=== PATIENT | male | born 1965 | race Two or more races ===

== ENCOUNTER 2022-04-02 11:25 | Inpatient (IN) | payer OTHER ==
[~2022-04-02] VITALS: Ht 160 cm; Wt 88.8 kg
[2022-04-02] MEDS ORDERED: SODIUM CHLORIDE 0.9% 1,000 ML IV ONE ×2 (12:00→16:30)
[2022-04-02] MEDS ORDERED: ONDANSETRON HCL 4 MG/2 ML VIAL IV ONE (12:15)
[2022-04-02] MEDS ORDERED: fentaNYL CITRATE 100 MCG/2 ML VL IV ONE ×2 (12:15→18:45)
[2022-04-02 12:22] LABS: Basophils # (auto) 0.1 10 ^3/uL (0-0.2); Basophils % (auto) 0.7 % (0.0-2.0); Eosinophils # (auto) 0.1 10 ^3/uL (0-0.8); Eosinophils % (auto) 0.8 % (0.0-7.0); Hematocrit 44.4 % (41.0-53.0); Lymphocytes # (auto) 1.5 10 ^3/uL (0.4-5.4); Lymphocytes % (auto) 14.3 % (10.0-50.0); Mean Corpuscular Hemoglobin 29.4 pg (28.0-32.0); Mean Corpuscular Hgb Conc. 33.7 g/dL (32.0-36.0); Mean Corpuscular Volume 87.3 fL (80.0-100.0); Monocytes # (auto) 0.6 10 ^3/uL (0-1.3); Monocytes % (auto) 5.7 % (0.0-12.0); Neutrophils # (auto) 8.5 10 ^3/uL (1.6-8.6); Neutrophils % (auto) 78.5 % (37.0-80.0); Red Blood Cells 5.09 10^6/uL (4.5-5.90); White Blood Cell 10.8 10^3/uL (4.4-10.8)
[2022-04-02 12:46] LABS: Calcium 9.2 mg/dL (8.5-10.1); Magnesium 1.6 mg/dL (1.6-2.6); Potassium 3.9 mmol/L (3.5-5.1)
[2022-04-02 12:50] LABS: BUN/Creatinine Ratio 7.9; Bilirubin, Total 1.7 mg/dL (0.2-1.0); Total Protein 7.2 g/dL (6.4-8.2)
[2022-04-02 13:30] LABS: INR 1.01 (0.9-1.15); Partial Thromboplastin Time 23.6 sec (24.6-33.4)
[2022-04-02 13:38] LABS: Lactic Acid w/Reflex 2.8 mmol/L (0.4-2.0)
[2022-04-02] MEDS ORDERED: PIPERACILLIN-TAZOB 3.375GM 100 ML IV ONE (16:30)
[2022-04-02] MEDS ORDERED: ONDANSETRON HCL 4 MG/2 ML VIAL IV PRN (19:15)
[2022-04-02 19:51] LABS: Urine Bacteria NONE SEEN /hpf (None Seen); Urine Blood Negative /uL (Negative); Urine Specific Gravity 1.031 (1.001-1.035); Urine WBC 3 /hpf (0 - 3)
[2022-04-02] MEDS: SODIUM CHLORIDE 0.9% 1,000 ML IV SCH (21:47)
[2022-04-02] MEDS: PIPERACILLIN-TAZOB 3.375GM 100 ML IV SCH (22:19)
[2022-04-03] MEDS: MORPHINE SULFATE 4 MG/ML SYR/VIAL IV PRN ×2 (01:51→13:50)
[2022-04-03] MEDS ORDERED: TAMS0.4C36 PO (03:00)
[2022-04-03] MEDS ORDERED: LOSA100T25 PO (03:00)
[2022-04-03] MEDS ORDERED: ALLO100T PO (03:00)
[2022-04-03] MEDS ORDERED: BUSP7.5T8 PO (03:00)
[2022-04-03] MEDS ORDERED: ESCI-34 PO (03:00)
[2022-04-03 03:06] VITALS: BP 115/67
[2022-04-03 05:00] VITALS: BP 127/81
[2022-04-03] MEDS: PIPERACILLIN-TAZOB 3.375GM 100 ML IV SCH ×3 (05:16→21:33)
[2022-04-03] MEDS: SODIUM CHLORIDE 0.9% 1,000 ML IV SCH ×3 (05:36→20:44)
[2022-04-03 07:18] LABS: Basophils # (auto) 0 10 ^3/uL (0-0.2); Basophils % (auto) 0.5 % (0.0-2.0); Eosinophils # (auto) 0 10 ^3/uL (0-0.8); Eosinophils % (auto) 0.7 % (0.0-7.0); Hematocrit 38.4 % (41.0-53.0); Hemoglobin 13.2 g/dL (13.5-17.5); Lymphocytes # (auto) 0.9 10 ^3/uL (0.4-5.4); Lymphocytes % (auto) 12.9 % (10.0-50.0); Mean Corpuscular Hemoglobin 29.7 pg (28.0-32.0); Mean Corpuscular Hgb Conc. 34.3 g/dL (32.0-36.0); Mean Corpuscular Volume 86.5 fL (80.0-100.0); Monocytes # (auto) 0.9 10 ^3/uL (0-1.3); Monocytes % (auto) 12.9 % (0.0-12.0); Neutrophils # (auto) 5.2 10 ^3/uL (1.6-8.6); Red Blood Cells 4.43 10^6/uL (4.5-5.90); Red Cell Distribution Width 14.1 % (11.8-14.3); White Blood Cell 7.1 10^3/uL (4.4-10.8)
[2022-04-03 07:27] LABS: Albumin 3.2 g/dL (3.4-5.0); Calcium 8.1 mg/dL (8.5-10.1); Magnesium 1.8 mg/dL (1.6-2.6)
[2022-04-03 07:33] LABS: BUN/Creatinine Ratio 6.7; Bilirubin, Total 3.4 mg/dL (0.2-1.0); Total Protein 5.8 g/dL (6.4-8.2)
[2022-04-03 09:00] VITALS: BP 129/67
[2022-04-03 16:45] VITALS: BP 127/82
[2022-04-03 22:00] VITALS: BP 146/89
[2022-04-04] MEDS: MORPHINE SULFATE 4 MG/ML SYR/VIAL IV PRN ×3 (02:08→21:00)
[2022-04-04] MEDS: PIPERACILLIN-TAZOB 3.375GM 100 ML IV SCH ×4 (04:42→22:41)
[2022-04-04] MEDS: SODIUM CHLORIDE 0.9% 1,000 ML IV SCH ×3 (04:44→22:41)
[2022-04-04 05:00] VITALS: BP 134/84
[2022-04-04 06:39] LABS: Basophils # (auto) 0 10 ^3/uL (0-0.2); Basophils % (auto) 0.4 % (0.0-2.0); Eosinophils # (auto) 0 10 ^3/uL (0-0.8); Eosinophils % (auto) 0.2 % (0.0-7.0); Hematocrit 36.9 % (41.0-53.0); Hemoglobin 12.7 g/dL (13.5-17.5); Lymphocytes # (auto) 1.1 10 ^3/uL (0.4-5.4); Lymphocytes % (auto) 10.1 % (10.0-50.0); Mean Corpuscular Hemoglobin 30.2 pg (28.0-32.0); Mean Corpuscular Hgb Conc. 34.5 g/dL (32.0-36.0); Mean Corpuscular Volume 87.5 fL (80.0-100.0); Monocytes # (auto) 1.3 10 ^3/uL (0-1.3); Neutrophils # (auto) 8.1 10 ^3/uL (1.6-8.6); Neutrophils % (auto) 77.3 % (37.0-80.0); Red Blood Cells 4.22 10^6/uL (4.5-5.90); White Blood Cell 10.5 10^3/uL (4.4-10.8)
[2022-04-04 06:56] LABS: Potassium 3.8 mmol/L (3.5-5.1)
[2022-04-04 07:02] LABS: BUN/Creatinine Ratio 12.7; Bilirubin, Total 3.2 mg/dL (0.2-1.0); Total Protein 5.6 g/dL (6.4-8.2)
[2022-04-04] MEDS ORDERED: ROCURONIUM 10MG/ML 10ML VIAL IV ONE (08:31)
[2022-04-04] MEDS ORDERED: SUCCINYLCHOLINE CHLORIDE 20 MG/ML 10ML VIAL IV ONE (08:31)
[2022-04-04 09:00] VITALS: BP 138/89
[2022-04-04] MEDS ORDERED: HYDROmorphone HCL 2 MG/ML VL/or syr IV PRN (09:30)
[2022-04-04] MEDS ORDERED: METOCLOPRAMIDE HCL 5MG/ml INJ 2ml VIAL IV PRN (09:30)
[2022-04-04] MEDS ORDERED: MORPHINE SULFATE 4 MG/ML SYR/VIAL IV PRN (09:30)
[2022-04-04] MEDS ORDERED: NEOSTIGMINE 1 MG/ML INJ (10mg/10ML VIAL) ONE (09:43)
[2022-04-04] MEDS ORDERED: MEPERIDINE HCL (25 MG/ML) 1ML VIAL ONE (09:43)
[2022-04-04] MEDS ORDERED: SODIUM CHLORIDE LOCK 10 ML ONE (09:43)
[2022-04-04] MEDS ORDERED: PROPOFOL 10 MG/ML 20 ML IV ONE (09:43)
[2022-04-04] MEDS ORDERED: MIDAZOLAM HCL 2MG/2ML 2ml VIAL (1mg/ml) ONE (09:43)
[2022-04-04] MEDS ORDERED: fentaNYL CITRATE 100 MCG/2 ML VL ONE (09:43)
[2022-04-04] MEDS ORDERED: DexAMETHasone SOD PHOS 10MG/1ML VIAL INJ ONE (09:43)
[2022-04-04] MEDS ORDERED: GLYCOPYRROLATE 0.2 MG/ML 1ML VIAL ONE (09:43)
[2022-04-04] MEDS ORDERED: ceFAZolin 1GM/50ML 100 ML IV ONE (09:46)
[2022-04-04] MEDS ORDERED: BUPIVACAINE W/ EPINEPH 0.25% INJ 50ML MDV ONE (09:48)
[2022-04-04] MEDS ORDERED: LIDOCAINE W/ EPINEPHRINE 2% INJ 20ML VIAL ONE (09:48)
[2022-04-04] MEDS ORDERED: SUGAMMADEX 200mg/2ml Vial (100MG/ML) IV ONE (11:31)
[2022-04-04] MEDS: HCTZ 25 MG TAB PO SCH (15:15)
[2022-04-04 16:57] VITALS: BP 151/99
[2022-04-04 19:38] VITALS: BP 151/99
[2022-04-04 22:00] VITALS: BP 131/81
[2022-04-04] MEDS: busPIRone HCL 10 MG TAB PO SCH (22:41)
[2022-04-05] MEDS: MORPHINE SULFATE 4 MG/ML SYR/VIAL IV PRN ×2 (04:30→09:59)
[2022-04-05 05:00] VITALS: BP 118/70
[2022-04-05] MEDS: PIPERACILLIN-TAZOB 3.375GM 100 ML IV SCH ×2 (06:28→14:03)
[2022-04-05] MEDS: SODIUM CHLORIDE 0.9% 1,000 ML IV SCH ×2 (06:29→14:02)
[2022-04-05 06:53] LABS: Basophils # (auto) 0 10 ^3/uL (0-0.2); Basophils % (auto) 0.2 % (0.0-2.0); Eosinophils # (auto) 0 10 ^3/uL (0-0.8); Hematocrit 34.4 % (41.0-53.0); Hemoglobin 11.6 g/dL (13.5-17.5); Lymphocytes # (auto) 0.6 10 ^3/uL (0.4-5.4); Lymphocytes % (auto) 5.6 % (10.0-50.0); Mean Corpuscular Hgb Conc. 33.7 g/dL (32.0-36.0); Mean Corpuscular Volume 86.1 fL (80.0-100.0); Monocytes # (auto) 1.3 10 ^3/uL (0-1.3); Monocytes % (auto) 10.8 % (0.0-12.0); Neutrophils # (auto) 9.7 10 ^3/uL (1.6-8.6); Neutrophils % (auto) 83.4 % (37.0-80.0); Red Blood Cells 3.99 10^6/uL (4.5-5.90); Red Cell Distribution Width 13.9 % (11.8-14.3); White Blood Cell 11.6 10^3/uL (4.4-10.8)
[2022-04-05 07:02] LABS: Potassium 4.3 mmol/L (3.5-5.1)
[2022-04-05 07:09] LABS: Albumin 2.6 g/dL (3.4-5.0); BUN/Creatinine Ratio 8.7; Bilirubin, Total 1.5 mg/dL (0.2-1.0); Calcium 7.8 mg/dL (8.5-10.1); Total Protein 5.4 g/dL (6.4-8.2)
[2022-04-05 09:21] VITALS: BP 125/71
[2022-04-05] MEDS: HCTZ 25 MG TAB PO SCH (09:45)
[2022-04-05] MEDS: busPIRone HCL 10 MG TAB PO SCH (09:46)
[2022-04-05] MEDS ORDERED: TAMSULOSIN HYDROCHLORIDE 0.4 MG CAP PO SCH (10:00)
[2022-04-05] MEDS ORDERED: LOSARTAN POTASSIUM 25 MG TAB PO SCH (10:00)
[2022-04-05] MEDS ORDERED: CITALOPRAM HYDROBR 20 MG TAB PO SCH (10:00)
[2022-04-05] MEDS ORDERED: ALLOPURINOL 100 MG TAB PO SCH (10:00)
[2022-04-05] MEDS ORDERED: POTASSIUM CHL 10 Meq TABLET PO SCH (10:00)
[2022-04-05 13:00] VITALS: BP 132/78
[2022-04-05 17:22] VITALS: BP 132/79
[2022-04-05] MEDS ORDERED: HYDR-4902 PO (18:19)
[2022-04-05] MEDS ORDERED: AMOX-277 PO (18:19)
[2022-04-05] MEDS ORDERED: DOCU-94 PO (18:19)
[2022-04-05 18:32] VITALS: BP 125/71
[2023-04-04] MEDS ORDERED: SUCCINYLCHOLINE CHLORIDE 20 MG/ML 10ML VIAL IV ONE (14:04)
== END 2022-04-05 19:11 | disposition home or self-care (01) | DRG 418 ==
LOC: ER 11:25 → OVERFLOW 19:24 → WEST WING 04-03 01:30
PROVIDERS: ADMIT Nurse Practitioner Family; ATTEND Internal Medicine
PROC: 0DNU4ZZ Release Omentum, Percutaneous Endoscopic Approach (ICD-10-PCS; 2022-04-04)
PROC: 0FT44ZZ Resection of Gallbladder, Percutaneous Endoscopic Approach (ICD-10-PCS; principal; 2022-04-04 10:08)
DX: K80.00 Calculus of gallbladder with acute cholecystitis without obstruction (principal); K82.1 Hydrops of gallbladder; F32.A Depression, unspecified; F41.9 Anxiety disorder, unspecified; K21.9 Gastro-esophageal reflux disease without esophagitis; M10.9 Gout, unspecified; K66.0 Peritoneal adhesions (postprocedural) (postinfection); K82.A1 Gangrene of gallbladder in cholecystitis; N40.0 Benign prostatic hyperplasia without lower urinary tract symptoms; I10 Essential (primary) hypertension; R73.9 Hyperglycemia, unspecified; Z20.822 Contact with and (suspected) exposure to COVID-19; R74.8 Abnormal levels of other serum enzymes
CPT/HCPCS: 36415; 71045; 74176; 74177; 74181; 76705; 78226; 80053; 81001; 83605; 83690; 83735; 83880; 84100; 84484; 85025; 85610; 85730; 86850; 86900; 86901; 93005; 96361; 96365; 96374; 96375; G0378; J0330; J0690; J1100; J2250; J2405; J2543; J2704

== ENCOUNTER 2025-01-15 17:00 | Emergency (ER) | payer OTHER ==
[~2025-01-15] VITALS: Ht 160 cm; Wt 96.2 kg
[~2025-01-15 17:00] MED LIST: ALLO100T PO; AMOX875T4 PO; BUSP7.5T8 PO; DOCU-94 PO; ESCI1TAB37 PO; HYDR-4902 PO; LOSA100T25 PO; TAMS0.4C39 PO
--- NOTE | 2025-01-15 17:13 | ED.PDOC ---
HPI Allergic reaction HPI Comments A 59 YEAR-OLD MALE, WITH A PMHX OF ANXIETY, PRESENTS TO THE ED WITH A CHIEF COMPLAINT OF RASH OF X3 DAYS AGO AFTER SWIMMING. PATIENT STATES THE RASH IS ITCHY WITH ASSOCIATED SKIN REDNESS. PATIENT ALSO HAS A SUNBURN ON THE SHOULDERS WITH NO ALLEVIATING FACTORS NOTED. PATIENT HAS NO FURTHER COMPLAINTS AT THIS TI ME AND OTHERWISE DENIES FEVER, CHILLS, SHORTNESS OF BREATH, CHEST PAIN, ABDOMINAL PAIN, NAUSEA, VOMITING, HEADACHE, OR OTHER COMPLAINTS. NO OTHER SYMPTOMS OR MODIFYING FACTORS AT THIS TIME. PATIENT IS ALERT, ORIENTED X 4, AND HAS STEADY GAIT. Chief Complaint: RASH Time Seen by MD: 17:07 Primary Care Provider: NASIR Reviewed Notes: Nurses Notes, Medications, Allergies Allergies: Coded Allergies: NO KNOWN ALLERGIES (Unverified , 11/18/13) Home Meds Active Scripts Methylprednisolone (Medrol Dosepak) 4 Mg Nj, 4 MG PO UD, #21 TAB UAD Prov:QUENTIN HERNANDEZ 01/15/25 Hydroxyzine Hcl (Hydroxyzine Hcl) 50 Mg Tab, 1 TAB PO TID, #30 TAB 1 Refill Prov:QUENTIN HERNANDEZ 01/15/25 Docusate Sodium (Colace) 100 Mg Cap, 100 MG PO BID, #20 MG Prov:SARAH MEJIA MD 04/05/22 Hydrocodone-Acetaminophen (Hydrocodone Bitartrate/AC 5-325 mg) 1 Tab Tab, 1 TAB PO Q6HPRN PRN, #20 TAB Prov:SARAH MEJIA MD 04/05/22 Amoxicillin & Pot Clavulanate (Amoxicillin/Potassium Cla) 875 Mg Tab, 1 TAB PO BID, #14 TAB Prov:SARAH MEJIA MD 04/05/22 Reported Medications Allopurinol (Allopurinol) 100 Mg Tab, 1 TAB PO DAILY 04/03/22 Losartan Potassium & Hydrochlo (Hyzaar) Unknown Strength Tab, PO BID 04/03/22 Buspirone Hcl (Buspirone Hcl) 7.5 Mg Tab, 1 TAB PO BID 04/03/22 Tamsulosin Hcl (Tamsulosin Hcl) 0.4 Mg Cap, 1 CAP PO BID 04/03/22 Escitalopram Oxalate (ESCITALOPRAM OXALATE) 20 Mg Tab, 1 TAB PO DAILY 04/03/22 Information Source: Patient Mode of Arrival: Ambulatory Severity: Moderate Rash: Moderate SOB: None Difficulty swallowing: None Pruritus: Moderate Timing: Days Duration: Since onset Location: Arm, Back, Chest, Other (SHOULDERS ) Exposed to: Other Developed: Pruritus, Rash History of: Other (ANXIETY ) Modyifying Factors: Not Used Associated Sign and Symptoms: Other (RASH ) Past Medical History PAST MEDICAL HISTORY: Anxiety, Depression, HTN Surgical History: Tonsillectomy Family History Family History: Unknown Social History Smoker: Non-Smoker Alcohol: Occasionally Drugs: Denies Drug Use Lives In: Home Constitutional: reports: others (ANXIOUS ); denies: chills, diaphoresis, fatigue, fever, malaise, sweats, weakness EENTM: denies: blurred vision, double vision, ear bleeding, ear discharge, ear drainage, ear pain, ear ringing, eye pain, eye redness, hearing loss, mouth pain, mouth swelling, nasal discharge, nose bleeding, nose congestion, nose pain, photophobia, tearing, throat pain, throat swelling, voice changes, others Respiratory: denies: cough, hemoptysis, orthopnea, SOB at rest, shortness of breath, SOB with excertion, stridor, wheezing, others Cardiovascular: denies: chest pain, dizzy spells, diaphoresis, Dyspnea on exertion, edema, irregular heart beat, left arm pain, lightheadedness, palpitations, PND, syncope, others Gastrointestinal: denies: abdomen distended, abdominal pain, blood streaked bowels, constipated, diarrhea, dysphagia, difficulty swallowing, hematemesis, melena, nausea, poor appetite, poor fluid intake, rectal bleeding, rectal pain, vomiting, others Genitourinary: denies: burning, dysuria, flank pain, frequency, hematuria, incontinence, penile discharge, penile sore, pain, testicle pain, testicle swelling, urgency, others Neurological: denies: dizziness, fainting, headache, left sided numbness, left sided weakness, numbness, paresthesia, pre-existing deficit, right sided numbness, right sided weakness, seizure, speech problems, tingling, tremors, weakness, others Musculoskeletal: denies: back pain, gout, joint pain, joint swelling, muscle pain, muscle stiffness, neck pain, others Integumetry: reports: rash, others (ITCHINESS WITH REDNESS); denies: bruises, change in color, change in hair/nails, dryness, laceration, lesions, lumps, wounds Allergic/Immunocompromised: reports: Hives, Itching; denies: Difficulty Healing, Frequent Infections, others Hematologic/Lymphatic: denies: anemia, blood clots, easy bleeding, easy bruising, swollen glands, others Endocrine: denies: excessive hunger, excessive sweating, excessive thirst, excessive urination, flushing, intolerance to cold, intolerance to heat, unexplained weight gain, unexplained weight loss, others Psychiatric: denies: anxiety, bipolar disorder, depression, hopeless, panic disorder, schizophrenia, sleepless, suicidal, others All Other Systems: Reviewed and Negative Physical Exam General Appearance: Mild Distress, Normal, Other (ANXIOUS ) HEENT: Normal ENT Inspection, Pharynx Normal, TMs Normal Neck: Full Range of Motion, Non-Tender, Normal, Normal Inspection Respiratory: Chest Non-Tender, Lungs Clear, No Accessory Muscle Use, No Respiratory Distress, Normal Breath Sounds Cardiovascular: No Edema, No JVD, No Murmur, No Gallop, Normal Peripheral Pulses, Regular Rate/Rhythm Breast Exam: Deferred Gastrointestinal: No Organomegaly, Non Tender, No Pulsatile Mass, Normal Bowel Sounds, Soft Genitalia: Deferred Pelvic: Deferred Rectal: Deferred Extremities: No calf tenderness, Normal capillary refill, Normal inspection, Normal range of motion, Non-tender, No pedal edema Musculoskeletal : Apperance: Normal Neurologic: Alert, cattle examiner II-XII nml as Tested, No Motor Deficits, Normal Affect, Normal Mood, No Sensory Deficits Cerebellar Function: Normal Reflexes: Normal Skin: Dry, Rash, Warm (RASH WITH HIVES AND 1ST DEGREE SUNBURN ON NECK, UPPER BACK, UPPER CHEST AND UPPER SHOULDERS, NO SWELLING AND OPEN WOUNDS. ) Peripheral Pulses: 2+ carotid (R), 2+ carotid (L) Lymphatic: No Adenopathy Was a procedure done? Was a procedure done?: No Differential diagnosis (all) Differential Diagnosis: Contact Dermatitis, Drug Reaction, Urticaria, Other (1ST DEGREEN SUNBURN ) X-Ray, Labs, Meds, VS Vital Signs Date Time Temp Pulse Resp B/P (MAP) Pulse Ox O2 Delivery O2 Flow Rate FiO2 01/15/25 17:22 74 16 94 Room Air 01/15/25 17:22 97.8 74 16 145/91 (109) 94 97.8 01/15/25 17:07 98.4 78 18 157/97 (117) 97 98.4 Current Medications Medications (Trade) Dose Ordered Sig/Shane Route Start Time Stop Time Status Last Admin Diphenhydramine HCl (Benadryl Injection) 50 mg ONCE ONCE IM 01/15/25 17:15 01/15/25 17:16 DC 01/15/25 17:33 Silver Sulfadiazine (Silvadene) 1 applic ONCE ONCE TOP 01/15/25 17:15 01/15/25 17:16 DC 01/15/25 17:33 X-Ray, Labs, Meds, VS Comment EXTERNAL MEDICAL RECORDS: NONE INDEPENDENT HISTORIANS: NONE SOCIAL DETERMINANTS OF HEALTH: NONE LABS ORDERED: NONE REVIEWED AND INTERPRETED RESULTS: NONE IMAGING ORDERED: NONE TREATMENTS ORDERED: BENADRYL INJECTION 50 MG IM AND SILVADENE CREAM PATIENT'S CASE AND RESULTS HAVE BEEN DISCUSSED WITH THE ED ATTENDING PHYSICIAN AND THEY AGREE WITH MY PLAN OF CARE. RX: VISTARIL 50MG I HAVE DISCUSSED THE RESULTS WITH THE PATIENT AND HAVE INSTRUCTED THE PATIENT TO FOLLOW UP WITH THEIR PCP IN 1-2 DAYS. THE PATIENT FULLY UNDERSTANDS THEIR RESULTS AND ARE AWARE THEY NEED TO FOLLOW UP WITH THEIR PCP FOR FURTHER EVALUAT ION IF THEIR SYMPTOMS PERSIST. Time of 1ST Reevaluation: 17:20 Reevaluation 1ST: Unchanged Time of 2ND Reevaluation: 18:30 Reevaluation 2ND: Improved Patient Education/Counseling: Diagnosis, Treatment, Need For Follow Up Family Education/Counseling: Diagnosis, Treatment, Need For Follow Up Medical Screening: No EMC Exist At This Time SEPSIS Sepsis Screen Vital Signs Date Time Temp Pulse Resp B/P (MAP) Pulse Ox O2 Delivery O2 Flow Rate FiO2 01/15/25 17:22 74 16 94 Room Air 01/15/25 17:22 97.8 74 16 145/91 (109) 94 97.8 01/15/25 17:07 98.4 78 18 157/97 (117) 97 98.4 Medications Medications Dose Ordered Sig/Shane Route Start Time Stop Time Status Last Admin Dose Admin Diphenhydramine HCl 50 mg ONCE ONCE IM 01/15/25 17:15 01/15/25 17:16 DC 01/15/25 17:33 Silver Sulfadiazine 1 applic ONCE ONCE TOP 01/15/25 17:15 01/15/25 17:16 DC 01/15/25 17:33 Departure 1 Departure Time of Disposition: 18:30 Impression: Primary Impression: First degree sunburn Additional Impression: Allergic contact dermatitis Qualified Codes: L23.89 - Allergic contact dermatitis due to other agents Disposition: HOME / SELF CARE / HOMELESS Condition: Stable Additional Instructions: FOLLOW-UP WITH PCP IN 1 TO 2 DAYS. TAKE MEDICATIONS PRESCRIBED. RETURN TO ED FOR ANY NEW OR WORSENING SYMPTOMS. e-Prescriptions Methylprednisolone (Medrol Dosepak) 4 Mg Nj 4 MG PO UD, #21 TAB UAD Prov: QUENTIN HERNANDEZ 01/15/25 Hydroxyzine Hcl (Hydroxyzine Hcl) 50 Mg Tab 1 TAB PO TID, #30 TAB 1 Refill Prov: QUENTIN HERNANDEZ 01/15/25 Discharged With: Self Critical Care Note Critical Care Time?: No Stability Stability form required: No Heart Score Heart Score: Heart Score Response (Comments) Value History N/A 0 EKG N/A 0 Age N/A 0 Risk Factors N/A 0 Troponin N/A 0 Total 0 I personally scribed for QUENTIN HERNANDEZ ([email or web address]) on 01/15/25 at 17:13. Electronically submitted by Kenyatta Cleveland ([employer]). QUENTIN HERNANDEZ Jan 15, 2025 17:13
[2025-01-15] MEDS ORDERED: HYDR50TA69 PO (17:30)
[2025-01-15] MEDS ORDERED: METH4PAK PO (17:30)
[2025-01-15] MEDS: diphenhdrAMINE HCL 50 MG/1 ML VL IM ONE (17:33)
[2025-01-15] MEDS: SILVER SULFADIAZINE 1 % TOPICAL CREAM 50GM TOP ONE (17:33)
[2025-01-15 19:27] VITALS: BP 158/90; TEMP 99
[2025-01-15 19:35] VITALS: PULSE 83; RESP 16; O2SAT 97
== END 2025-01-15 19:38 | disposition home or self-care (01) ==
LOC: ER 17:03
DX: L55.0 Sunburn of first degree (principal); L23.9 Allergic contact dermatitis, unspecified cause; F41.9 Anxiety disorder, unspecified; I10 Essential (primary) hypertension; F32.A Depression, unspecified; Z90.89 Acquired absence of other organs; Z79.899 Other long term (current) drug therapy
CPT/HCPCS: 96372; 99283; J1200